=== PATIENT | female | born 1985 | race Hispanic/Latino ===

== ENCOUNTER 2018-10-14 19:13 | Emergency (ER) | payer OTHER ==
[2018-10-14 19:40] VITALS: BP 107/68; PULSE 71; RESP 16; TEMP 98.4; O2SAT 99
--- NOTE | 2018-10-14 20:01 | ED PDOC ---
Upper Extremity Pain/Injury Time Seen by Provider: 10/14/18 19:45 Chief Complaint (Nursing): Finger,Hand,&Wrist Chief Complaint (Provider): Left Hand Laceration History Per: Patient History/Exam Limitations: no limitations Onset/Duration Of Symptoms: Hrs (incident happened around 1829) Current Symptoms Are (Timing): Still Present Additional Complaint(s): 33 year old female presents to the ED for evaluation of a left hand laceration. Patient states around 1830 tonight she was cutting a pepper with a knife when it slipped and cut the space between her thumb and index finger. She notes the wound kept reopening and presents concerned about scarring to the area. Otherwise, denies numbness and tingling. Tetanus up to date (2 years ago) Past Medical History Reviewed: Historical Data, Nursing Documentation, Vital Signs Vital Signs: Last Vital Signs Temp 98.4 F 10/14/18 19:35 Pulse 71 10/14/18 19:35 Resp 16 10/14/18 19:35 BP 107/68 10/14/18 19:35 Pulse Ox 99 10/14/18 19:35 Primary Care Provider: FAMILY PROVIDER,NO - Medical History PMH: No Chronic Diseases - Surgical History Surgical History: No Surg Hx - Family History Family History: States: Unknown Family Hx - Immunization History Hx Tetanus Toxoid Vaccination: Yes (as of 2 year ago per patient) - Allergies Allergies/Adverse Reactions: Allergies Allergy/AdvReac Type Severity Reaction Status Date / Time No Known Allergies Allergy Verified 10/14/18 19:40 Review of Systems ROS Statement: Except As Marked, All Systems Reviewed And Found Negative Skin: Positive for: Other (laceration to space between left thumb and index finger) Neurological: Negative for: Numbness (or tingling) Physical Exam - Reviewed Nursing Documentation Reviewed: Yes Vital Signs Reviewed: Yes - Physical Exam Comments: GENERAL APPEARANCE: Patient is awake, alert, oriented x 3, in no acute distress. SKIN: Warm, dry; (-) cyanosis. LEFT UPPER EXTREMITY: (+) 1cm very superficial laceration to interstitial web space between 1st and 2nd digits of hand with well approximated edges and no active bleeding. full ROM all digits of hand. Capillary refill less than 2 seconds. Remainder of LUE non tender with full ROM. CARDIOVASCULAR: (+) 2+ distal pulse. NEUROLOGIC: (+) distal sensation. - ECG O2 Sat by Pulse Oximetry: 99 (RA) Pulse Ox Interpretation: Normal Medical Decision Making Medical Decision Making: Time: 2004 Initial Impression: lac repair Initial Plan: --Patient is concerned over scarring to the area so discussed benefits of suture repair, which patient is agreeable to. Wound irrigated - see procedure note. 2054 Patient tolerated procedure well with no complications. Bacitracin and sterile dressing applied. Educated on further wound care and return parameters. Stable for d/c. Discussed results, diagnosis, treatment,wound care, return precautions and f/u with pt who is understanding, in agreement and stable for dc Scribe Attestation: Documented by Abeba Cordova, acting as a scribe for Sarwat Ferguson PA-C. Provider Scribe Attestation: All medical record entries made by the Scribe were at my direction and personally dictated by me. I have reviewed the chart and agree that the record accurately reflects my personal performance of the history, physical exam, medical decision making, and the department course for this patient. I have also personally directed, reviewed, and agree with the discharge instructions and disposition. Procedures - Time-Out Type of Procedure: lac repair Site of Procedure: web space between 1st and 2nd digits of left hand Correct Patient: Yes Correct Procedure: Yes PA/Tech: Sarwat Ferguson PA-C - Laceration/Wound Repair web space between 1st and 2nd digits of left hand Wound Length (cm): 1 Wound's Depth, Shape: superficial, linear Wound Explored: clean Irrigated w/ Saline (ccs): 250 Betadine Prep?: Yes Anesthesia: 1% Lidocaine Volume Anesthetic (ccs): 4 Wound Repaired With: Sutures Suture Size/Type: 5:0, proline Number of Sutures: 3 Wound Complexity: Simple Sterile Dressing Applied?: Yes Progress: Pt tolerated procedure well Disposition - Clinical Impression Clinical Impression: Laceration of thumb - Patient ED Disposition Is Patient to be Admitted: No Counseled Patient/Family Regarding: Studies Performed, Diagnosis, Need For Followup - Disposition Referrals: FAMILY PROVIDER,NO [Primary Care Provider] - Disposition: Routine/Home Disposition Time: 20:59 Condition: STABLE Additional Instructions: Return to ED or your primary doctor in 10-12 days for suture removal. Thank you for letting us take care of you today. The emergency medical care you received today was directed at your acute symptoms. If you were prescribed any medication, please fill it and take as directed. It may take several days for your symptoms to resolve. Keep wound clean, dry and covered during the day. Do not get wet for 24 hours. Then do not soak. Clean gently with soap and water. Apply bacitracin/neosporin 1-2 times a day. Return to the Emergency Department if your symptoms worsen, do not improve, or if you have any other problems. Please contact your doctor in 2 days for re-evaluation and follow up / or call one of the physicians/clinics you have been referred to that are listed on the Patient Visit Information form that is included in your discharge packet. Bring any paperwork you were given at discharge with you along with any medications you are taking to your follow up visit. Our treatment cannot replace ongoing medical care by a primary care provider (PCP) outside of the emergency department. Instructions: Wound Care (DC), Laceration Repair With Stitches (DC) Forms: [facility] ([place]se) Print Language: CZECH - POA Present On Arrival: None
[2018-10-14] MEDS ORDERED: Lidocaine 1% Inj (20ml) IJ STA (20:05)
[2018-10-14] MEDS ORDERED: Lidocaine 1% Inj (20ml) ONE (20:17)
== END 2018-10-14 20:56 | disposition home or self-care (01) ==
LOC: H.ER 19:13
DX: S61.011A Laceration without foreign body of right thumb without damage to nail, initial encounter (principal); W26.0XXA Contact with knife, initial encounter; Y93.G1 Activity, food preparation and clean up